=== PATIENT | female | born 1960 | race Caucasian/White ===

== ENCOUNTER 2016-12-05 10:25 | Emergency (ER) | payer OTHER ==
[~2016-12-05] VITALS: Ht 170.2 cm; Wt 93.2 kg
[~2016-12-05 10:25] MED LIST: BUPR75TA10 PO; CITA20TA PO; NAPR220C11 PO
[2016-12-05 10:32] VITALS: BP 147/86; PULSE 84; RESP 20; O2SAT 98
--- NOTE | 2016-12-05 10:49 | ED.REPORT ---
HPI-Extremity Problem Upper Date of Service Dec 05, 2016 ED Provider: AndreaJoaquim Coleman HAWLEY Pt is a 56 y/o female w/ a hx of osteoarthritis, tendinitis, chronic right shoulder pain, presenting to the ED c/o increased right shoulder pain onset this morning. She woke up with an exacerbation of her chronic pain. She denies any mechanism or injury. An MRI of the shoulder taken in 2013 showed severe arthritis and a rotator cuff tear. A total right shoulder replacement has been scheduled. Aleve has given her no relief. She denies numbness or weakness. Nursing Notes Stated Complaint: RIGHT SHOULDER PAIN Chief Complaint: Extremity Trauma Nursing Notes Reviewed: Yes Allergies: Coded Allergies: pseudoephedrine (Verified Allergy, Severe, Rash, 12/05/16) triprolidine (Verified Allergy, Severe, Rash, 12/05/16) Scheduled Bupropion (Bupropion) 75 Mg Tablet 75 MG PO BID Citalopram Hydrobromide (Celexa) 20 Mg Tablet 20 MG PO DAILY Naproxen Sodium (Aleve) 220 Mg Capsule 220 MG PO DAILY Scheduled PRN Hydrocodone-Acetaminophen 5-325 mg (Hydrocodone-Acetaminophen 5-325 mg) 1 Each Tablet 1 TABLET PO Q4H PRN PRN For Pain General Time Seen by MD: 10:44 Chief Complaint Other (Right shoulder pain) Hx Obtained From: Patient Arrived By: Walk-in Onset Occurred: 1 - 4 hours ago Symptom Duration: Since onset Location: : Shoulder right Quality: Painful Severity: Current: Severe Severity: Maximum: Severe Exacerbated by: Range of motion Relieved by: Rest Recent Healthcare: Recent doctor visit, Recent testing, Previous diagnosis, Prior workup Similar Sx Previous: Yes Past Medical History Past Medical History Chronic right shoulder pain Gout, Osteoarthritis, Tendonitis in shoulders, Borderline DM, GERD Hx pneumonia Anxiety Depression Past Surgical History Breast reduction, Tubal ligation Family History Reviewed, not relevant Reports: Diabetes mellitus Smoking History Current Every Day Smoker, Heavy Tobacco Smoker Social History Home health aid Alcohol Use: "Social" Drug Use: THC Other Social History: Good social support, Local resident Ambulatory Status Independent Review of Systems Constitutional: Denies: Chills, Fever Musculoskeletal: Reports: Extremity pain, Joint pain Neurologic: Denies: Numbness, Weakness Complete sys rev & neg: except as marked. Respiratory: Denies: Shortness of breath Cardiovascular: Denies: Chest pain GI: Denies: Abdominal pain Physical Exam Initial Vital Signs Initial VS: Reviewed, Vital signs normal Head / Eyes: Atraumatic, Normocephalic, PERRL ENT: Mucous membranes moist, Conjunctiva normal, No scleral icterus Respiratory: Breath sounds normal, Clear to auscultation, No respiratory distress Cardiovascular: Regular rate & rhythm, Heart sounds normal, Intact distal pulses Abdomen / GI: Soft, Non-tender, No guarding, No rebound, No distention Skin: Warm, Dry, No cyanosis Neurologic: Alert, Oriented, Nonfocal Psychiatric: Mood/affect normal, Behavior normal, Normal thought content Neck: Atraumatic, Supple, No meningismus, Full range of motion, No midline vertebral tend Mild tenderness over right upper trapezius Upper Extremity / MS: Atraumatic, No deformity No tenderness over AC joint. Negative drawer test. Negative Spurling's test Tenderness over deltoid insertion Positive Speed's test Tenderness over biceps tendon Passive ROM 90 degrees of abduction. Passive ROM 120 degrees of flexion Pain with ROM Interpretation & Diagnostics X-Ray Interpretation Xray Interpretation: IMPRESSION: The shoulder shows no evidence of acute trauma but there is overall moderately severe degenerative osteoarthritis best seen at the acromioclavicular and glenohumeral joints. Dictated by: Bert Greene M.D. on 12/05/2016 at 11:26 Approved by: Bert Greene M.D. on 12/05/2016 at 11:26 Study Performed: 3 view X-Ray Ordered: Shoulder right Interpretation / Wet Read by: Interpret - Radiologist Procedures Intra-Articular Injection 3 cc of Lidocaine and 1 cc of Kenalog mixed. 1 injection of 1cc of mixture into AC joint with 25 gauge 1.5 inch needle, 1 injection of 3cc of mixture into GH joint with 25 gauge spinal needle Extreme relief given after injection Time: 12:04 Injection Performed by: ED physician Indication: Painful joint Consent / Setup / Site Prep: Consent from patient, Time-out performed, Hand hygiene observed, Stand sterile technique, Sterile drapes applied Skin Preparation Agent: Hibiclens - Chlorhexidine Joint Injected: Shoulder right Local Anesthesia: Lidocaine 1% Needle Gauge: 25 Corticosteroid Prep: Triamcinolone acetonide Post-Procedure / Complications: No complications, Condition improved, Tolerated procedure well, Patient stable Re-Eval/Medical Decision Source of Hx: Old records Re-Evaluation/Progress : Time of Eval: 12:07 Patient Status: Condition improved, Moderate relief, Pain improved Re-Evaluation/Progress Note: Pt rechecked. Injection performed. Her pain is much improved. Informed pt of plan for treatment. Pt understands and agrees with plan for treatment. F/U and RTER warnings given. All questions addressed. Counseled Regarding: Diagnosis, Need for follow-up, When/why to return to ED Discharge & Departure Impression: Primary Impression: Rotator cuff tear arthropathy of right shoulder Additional Impression: Biceps tendinitis of right shoulder Disposition: Home Discharge Condition All VS Reviewed: Yes Condition: Stable Patient Instructions: Osteoarthritis (ED) Additional Instructions: Your x-ray today showed no acute findings although it did show significant osteoarthritis. I injected Kenalog mixed with Lidocaine into your shoulder joint today. Please contact your orthopedic surgeon and tell him about today's visit. Follow-up with your primary care doctor as needed. Please discuss pain medication during your visit. Return to the emergency department if you develop numbness/tingling or weakness of your right arm, severe pain, or other concerning symptoms. Referrals: Yvan Agrawal DO (PCP) Mac Attestation Portions of this note were transcribed by Mason Downs. I, Dr. Reddy personally performed the history, physical exam and medical decision-making; I reviewed and confirmed the accuracy of the information in the transcribed note. Signed by Mac Baker, 12/05/16 - 1100 copies to: Yvan Agrawal Gary R DO Dec 05, 2016 10:49 MASON DOWNS Dec 05, 2016 10:59 Joaquim Mendez DO Dec 05, 2016 10:49 MASON DOWNS Dec 05, 2016 10:59
[2016-12-05] MEDS ORDERED: HYDROcodone-APAP 10-325 mg PO ONE (11:00)
[2016-12-05] MEDS ORDERED: Triamcinolone Acet 40 mg/mL 5 mL Inj INTRARTICU ONE (11:00)
--- NOTE | 2016-12-05 11:28 | DRSVH ---
PROCEDURE: X-RAY RIGHT SHOULDER, MINIMUM TWO VIEWS ([id number]) INDICATIONS: right shoulder pain TECHNIQUE: 3 views of the shoulder were acquired. COMPARISON: None. FINDINGS: Bones: No fractures or dislocations and there is moderate osteoarthritis at the acromioclavicular silvestre int and moderately severe such degenerative change at the glenohumeral articulation. No suspicious b tommy lesions. Visualized ribs appear intact. Soft tissues: No suspicious soft tissue calcifications. IMPRESSION: The shoulder shows no evidence of acute trauma but there is overall moderately severe de generative osteoarthritis best seen at the acromioclavicular and glenohumeral joints. Dictated by: Bert Greene M.D. on 12/05/2016 at 11:26 Approved by: Bert Greene M.D. on 12/05/2016 at 11:26
[2016-12-05] MEDS ORDERED: HYDR-4003 PO (12:11)
[2016-12-05 12:13] VITALS: BP 130/69; PULSE 80; RESP 10; O2SAT 95
[2016-12-05 12:18] VITALS: BP 130/69; PULSE 80; RESP 10; O2SAT 95
== END 2016-12-05 12:13 | disposition home or self-care (01) ==
LOC: SED 10:25
DX: M75.101 Unspecified rotator cuff tear or rupture of right shoulder, not specified as traumatic (principal); M12.9 Arthropathy, unspecified; M75.21 Bicipital tendinitis, right shoulder; K21.9 Gastro-esophageal reflux disease without esophagitis; F17.200 Nicotine dependence, unspecified, uncomplicated; Z88.8 Allergy status to other drugs, medicaments and biological substances
CPT/HCPCS: 20610; 73030; 99283; J3301